=== PATIENT | female | born 1965 | race African-American/Black ===

== ENCOUNTER 2022-07-13 11:06 | Emergency (ER) | payer BC, SELFPAY ==
[2022-07-13] VITALS (8 sets, daily range): BP systolic 158–198; BP diastolic 88–103; PULSE 54–59; RESP 12–22; TEMP 36.6; O2SAT 96–100; BMI 35.5
--- NOTE | 2022-07-13 11:33 | ED_ITS ---
HPI - General Adult General Chief complaint: Nausea/Vomiting/Diarrhea Stated complaint: feels like she is going to pass out, low sugar Time Seen by Provider: 07/13/22 11:33 History of Present Illness HPI narrative: 56-year-old female nonsmoker with history of hypertension presents with a chief complaint of feeling shaky nauseated and near syncopal. She was at work this morning and started vomiting and lied on the floor. She did not actually pass out but felt close. She does have a history of pericarditis but states this is not feel the same. She admits That she is been through increased stress lately and has had longer periods between eating than normal. She is currently taking advanced classes and has been under some increased stress and studying and admits that she missed some of her medications earlier in the week which is likely contributing to her high blood pressure. Related Data Home Medications Medication Instructions Recorded Confirmed amlodipine 10 mg tablet 10 mg PO DAILY 07/13/22 07/13/22 losartan 100 mg tablet 100 mg PO DAILY 07/13/22 07/13/22 metoprolol succinate 25 mg 25 mg PO DAILY 07/13/22 07/13/22 tablet,extended release 24 hr pantoprazole 40 mg tablet,delayed 40 mg PO DAILY 07/13/22 07/13/22 release (Protonix) rilonacept 220 mg subcutaneous 220 mg SUBCUT WEEKLY 07/13/22 07/13/22 solution (Arcalyst) semaglutide 0.25 mg or 0.5 mg (2 mg SUBCUT 07/13/22 mg/3 mL) subcutaneous pen injector (Ozempic) venlafaxine 150 mg 150 mg PO DAILY 07/13/22 07/13/22 capsule,extended release 24 hr Previous Rx's Medication Instructions Recorded chlorthalidone 25 mg tablet 12.5 mg PO DAILY #30 tabs 07/13/22 Allergies Allergy/AdvReac Type Severity Reaction Status Date / Time No Known Drug Allergies Allergy Verified 07/13/22 11:44 Review of Systems Review of Systems Narrative: GENERAL: Denies chills, fatigue, malaise, fever, sweats. HEENT: D see HPI RESPIRATORY: Denies dyspnea, cough, wheezing, hemoptysis, sputum. CARDIOVASCULAR: See HPI GASTROINTESTINAL: Denies nausea, vomiting, abdominal pain, diarrhea, constipation, melena. : Denies dysuria, frequency, incontinence, hematuria, urinary retention. MUSCULOSKELETAL: denies weakness, joint pain, or bony pain SKIN: Denies rash, skin lesions, or other NEUROLOGIC: Denies weakness, headache, numbness, change in speech, confusion, seizures, incoordination. PSYCHIATRIC: No concerning psychosocial issues. 12 point review of systems is negative except for those stated above Patient History Social History Smoking Status: Never smoker Exam Narrative Exam Narrative: GENERAL: [56] year old patient appears stated age. Well-developed patient, in mild distress. GCS 15 HEAD: Atraumatic. Normocephalic. EYES: Pupils equal round and reactive. Extraocular motions intact. No scleral icterus. No injection or drainage. ENT: Nose without bleeding, purulent drainage. Throat without erythema, tonsillar hypertrophy or exudate. Airway patent. NECK: Trachea midline. Non tender CARDIOVASCULAR: Regular rate and rhythm without murmurs, gallops, or rubs. RESPIRATORY: Clear to auscultation. Breath sounds equal bilaterally. No wheezes, rales, or rhonchi. GASTROINTESTINAL: Abdomen soft, non-tender, nondistended. EXTREMITIES: No edema or joint tenderness. BACK: Nontender without deformity or crepitance. No flank tenderness. NEURO: AOx3. SKIN: No rash or erythema of visible areas NIH Stroke Scale 1a. LOC: Patient is alert and keenly responsive (0) 1b. LOC Questions: Patient answers both LOC questions accurately (0) 1c. LOC Commands: Patient performs both tasks correctly (0) 2. Best Gaze: Normal (0) 3. Visual: No visual loss (0) 4. Facial palsy: Normal symmetrical movements (0) 5. Motor arm: No drift (0) 6. Motor leg: No drift (0) 7. Limb ataxia: Absent (0) 8. Sensory: Normal (0) 9. Best language: No aphasia; normal (0) 10. Dysarthria: Normal (0) 11. Extinction and inattention: No abnormality (0) NIHSS: 0 Initial Vital Signs Initial Vital Signs: Vital Signs Pulse Rate 55 L 07/13/22 11:39 Pulse Oximetry 98 07/13/22 11:39 Course Orders Ordered: ED Orders 07/13/22 11:41 XR chest 1V Stat EKG-12 Lead Stat 07/13/22 11:57 Complete Blood Count AUTO DIFF Stat Comprehensive Metabolic Panel Stat Lipase Stat Troponin & CK Cardiac Panel Stat Sodium Chloride (Normal Saline 0.9%) 1,000 mls @ 150 mls/hr IV CONT KOJO Last Admin: 07/13/22 12:09 Dose: 150 mls/hr Documented By: OW Discontinued Medications Aspirin (Aspirin 81 Mg Chew Tab) 324 mg PO NOW ONE Stop: 07/13/22 11:42 Reevaluation(s) Reevaluation #1: Patient has complete resolution of symptoms early in the visit as her blood pressure drops in the 190s down to the 150s. Vital Signs Vital signs: Vital Signs - 8 hr 07/13/22 11:40 07/13/22 11:39 07/13/22 12:00 Temperature 97.9 F Pulse Rate 58 L 55 L Respiratory Rate 18 Blood Pressure 198/103 H 168/88 H Pulse Oximetry 98 98 Oxygen Delivery Method Room Air 07/13/22 12:00 07/13/22 12:30 07/13/22 12:30 Temperature Pulse Rate 58 L 54 L Respiratory Rate 12 14 Blood Pressure 165/90 H Pulse Oximetry 99 99 Oxygen Delivery Method 07/13/22 13:00 07/13/22 13:00 07/13/22 13:30 Temperature Pulse Rate 54 L Respiratory Rate 17 Blood Pressure 177/98 H 158/89 H Pulse Oximetry 100 Oxygen Delivery Method 07/13/22 13:30 07/13/22 14:00 07/13/22 14:00 Temperature Pulse Rate 59 L 59 L Respiratory Rate 17 22 Blood Pressure 159/91 H Pulse Oximetry 97 96 Oxygen Delivery Method Medical Decision Making Lab Data 07/13/22 11:57 07/13/22 11:57 Labs: Lab Results 07/13/22 07/13/22 Range/Units 11:57 11:57 WBC 7.2 (4.5-11.0) X10^3/uL RBC 4.99 (4.0-5.2) X10^6/uL Hgb 16.2 H (12.0-16.0) g/dL Hct 45.9 (36-46) % MCV 92.0 (80-100) fL MCH 32.4 (26-34) PG MCHC 35.2 (30-36) % RDW 13.8 (11.6-14.8) % Plt Count 253 (150-400) X10^3/uL Neut % (Auto) 62.6 (50-75) % Lymph % (Auto) 30.7 (25-40) % [place] % (Auto) 5.3 (3-14) % Eos % (Auto) 0.8 L (2-4) % Baso % (Auto) 0.6 (0-2) % Neut # (Auto) 4500 (0021-9780) /uL Lymph # (Auto) 2200 (3852-0071) /uL [place] # (Auto) 400 (0-900) /uL Eos # (Auto) 100 (0-450) /uL Baso # (Auto) 0 (0-100) /uL Sodium 136 L (137-145) mmol/L Potassium 3.4 (3.4-5.1) mmol/L Chloride 102 (98-107) mmol/L Carbon Dioxide 27 (22-32) mmol/L BUN 9 (7-17) mg/dL Creatinine 0.84 (0.52-1.04) mg/dL Estimated GFR > 60 (>60) mL/min BUN/Creatinine Ratio 10.7 (6-22) Glucose 100 (70-100) mg/dL Calcium 9.2 (8.4-10.2) mg/dL Total Bilirubin 0.9 (0.2-1.3) mg/dL AST 30 (14-36) IU/L ALT 26 (<35) IU/L Alkaline Phosphatase 114 (38-126) U/L Total Creatine Kinase 51 (30-135) U/L CK-MB (CK-2) TNP CK-MB (CK-2) Rel Index TNP Troponin I 0.017 (0.01-0.034) ng/mL Total Protein 8.4 H (6.3-8.2) g/dL Albumin 4.2 (3.5-5.0) g/dL Globulin 4.2 H (1.7-4.1) g/dL Albumin/Globulin Ratio 1.0 (1.0-2.8) Lipase 57 (23-300) U/L MDM Narrative Medical decision making narrative: [56] year old patient presents with Multiple etiologies for patient's symptoms considered including, but not limited to: [ medication noncompliance, hypoglycemia, increased stress versus other] Prior Charts reviewed in our EMR Primary Historian: patient Labs reviewed and interpreted by myself: no significant abnormalities requiring specific intervention Imaging reviewed: chest x-ray without abnormality Patient's symptoms improved over duration of stay with above-stated therapies. it seems likely that her symptoms were multifactorial NSTEMI from increased stress, some relative hypoglycemia and most notably medication noncompliance as she states that she forgot a few doses of her antihypertensives earlier in the week. She had symptoms such as headache and some chest pressure while hypertensive symptoms resolved as her blood pressure decreased. Findings and discharge diagnosis discussed with patient/family followed by verbalization of understanding Return precautions discussed with patient/family whom verbalize understanding of diagnosis and plan Discharge Plan Departure Patient Disposition: Home Clinical Impression: Near syncope, Hypertension Activity Restrictions/Additional Instructions: *You have been diagnosed with [ Hypertension and near-syncope. ] *What to do: *Please continue to take your regular medications as directed. [x ] New medication prescriptions sent to your pharmacy: [[facility] in [place] ] [ ] New medication written as a paper prescription [ ] No new medications given *Please follow up with your primary care provider in 2-3 days, call for an appointment. Let them know you were seen in the Emergency Department and that we ask that you be seen in follow up. We will electronically transmit a record of today's note if your PCP is in our system *If you do not have a primary care provider please contact the [facility] Resource line at [phone]. They will ask some questions about your medical history and help get you set up with a doctor in the community. *Return to Emergency Department if you should have any new, worsening or concerning symptoms, such as [fever greater than 101 F, shaking chills, worsenin g pain, persistent vomiting or other bothersome symptoms] Prescriptions: New chlorthalidone 25 mg tablet 12.5 mg PO DAILY Qty: 30 0RF No Action venlafaxine 150 mg capsule,extended release 24hr 150 mg PO DAILY amlodipine 10 mg tablet 10 mg PO DAILY metoprolol succinate 25 mg tablet extended release 24 hr 25 mg PO DAILY losartan 100 mg tablet 100 mg PO DAILY Arcalyst 220 mg recon soln 220 mg SUBCUT WEEKLY pantoprazole [Protonix] 40 mg Tablet,Delayed Release (Dr/Ec) 40 mg PO DAILY Ozempic 0.25 mg or 0.5 mg (2 mg/3 mL) Pen Injector SUBCUT Referrals: Linda Richardson MD [Primary Care Provider] - Stand Alone Forms: Patient Portal/API
--- NOTE | 2022-07-13 11:41 | DI.RAD.S_ITS ---
PROCEDURE: XR CHEST 1V INDICATIONS: chest pain TECHNIQUE: One view of the chest was acquired. COMPARISON: None. FINDINGS: Surgical changes and devices: None. Lungs and pleura: Lungs are clear. No pleural effusions or pneumothorax. Mediastinum: Mediastinal contours appear normal. Cardiomegaly. Bones and chest wall: No suspicious bony lesions. Overlying soft tissues appear unremarkable. IMPRESSION: Cardiomegaly. No evidence acute pulmonary process. Dictated by: Ariel Owen M.D. on 07/13/2022 at 12:17 Approved by: Ariel Owen M.D. on 07/13/2022 at 12:18
[2022-07-13 12:08] LABS: Add Manual Diff / Slide Review NO; Basophils Absolute Auto 0 /uL (0-100); Basophils Percent Auto 0.6 % (0-2); Eosinophils Absolute Auto 100 /uL (0-450); Eosinophils Percent Auto 0.8 % (2-4); Hematocrit 45.9 % (36-46); Hemoglobin 16.2 g/dL (12.0-16.0); Lymphocytes Absolute Auto 2200 /uL (1100-4500); Lymphocytes Percent Auto 30.7 % (25-40); Mean Corpuscular HGB Conc 35.2 % (30-36); Mean Corpuscular Hemoglobin 32.4 PG (26-34); Monocytes Absolute Auto 400 /uL (0-900); Monocytes Percent Auto 5.3 % (3-14); Neutrophils Absolute Auto 4500 /uL (1500-7000); Neutrophils Percent Auto 62.6 % (50-75); Platelet Count 253 X10^3/uL (150-400); Red Blood Cell Count 4.99 X10^6/uL (4.0-5.2); Red Cell Distribution Width 13.8 % (11.6-14.8); White Blood Cell Count 7.2 X10^3/uL (4.5-11.0)
[2022-07-13] MEDS: SODIUM CHLORIDE 0.9% 1,000 ML 150 ML IV (12:09)
[2022-07-13 12:25] LABS: Alanine Aminotransferase 26 IU/L (<35); Albumin 4.2 g/dL (3.5-5.0); Alkaline Phosphatase 114 U/L (38-126); Aspartate Aminotransferase 30 IU/L (14-36); BUN Creatinine Ratio 10.7 (6-22); Bilirubin Total 0.9 mg/dL (0.2-1.3); Blood Urea Nitrogen 9 mg/dL (7-17); Calcium 9.2 mg/dL (8.4-10.2); Carbon Dioxide 27 mmol/L (22-32); Chloride 102 mmol/L (98-107); Creatine Kinase 51 U/L (30-135); Estimated Glomerular Filt Rate > 60 mL/min (>60); Globulin 4.2 g/dL (1.7-4.1); Glucose 100 mg/dL (70-100); Lipase 57 U/L (23-300); Sodium 136 mmol/L (137-145); Total Protein 8.4 g/dL (6.3-8.2)
[2022-07-13 12:33] LABS: HEMOLYSIS 74 (0-50)
[2022-07-13 12:34] LABS: Potassium 3.4 mmol/L (3.4-5.1)
[2022-07-13 12:37] LABS: Troponin I 0.017 ng/mL (0.01-0.034)
== END 2022-07-13 14:41 | disposition home or self-care (01) ==
PROVIDERS: Emergency Provider Emergency Medicine; PCP Family Medicine
DX: R55 Syncope and collapse (principal); I10 Essential (primary) hypertension; R11.2 Nausea with vomiting, unspecified
CPT/HCPCS: 36415; 71045; 80053; 82550; 83690; 84484; 85025; 93005; 93010; 99284